=== PATIENT | female | born 1965 | race African-American/Black ===

== ENCOUNTER 2018-10-19 16:28 | Emergency (ER) | payer OTHER ==
--- NOTE | 2018-10-19 16:50 | ED ---
General Adult HPI - General Chief complaint: Recheck/Abnormal Lab/Rx Stated complaint: slip & fall-[facility] Time Seen by Provider: 10/19/18 16:39 Source: patient, RN notes reviewed Mode of arrival: ambulatory Limitations: no limitations - History of Present Illness Initial comments: 53-year-old female presents to the emergency department for a chief complaint of slip and fall occurring about one week ago. Patient states she did hit her head but had a negative CAT scan done at a different [facility] facility. Patient states she also had an x-ray of her thoracic spine and left humerus done at this facility earlier this week. Patient is now complaining of bilateral lower flank pain. She is also complaining of abdominal pain. She states this pain is generalized. Patient states she has been nauseous and has had intermittent diarrhea for the past week. She denies vomiting. She denies any difficulty urinating. She denies any dysuria. She denies any weakness in the legs. Patient has no other complaints at this time including shortness of breath, chest pain, headache, or visual changes. - Related Data Home Medications Medication Instructions Recorded Confirmed Acetaminophen Tab [Tylenol] 1,000 mg PO Q8HR PRN 10/13/18 10/19/18 Naproxen Sodium [Aleve] 220 mg PO DAILY 10/13/18 10/19/18 Allergies Allergy/AdvReac Type Severity Reaction Status Date / Time codeine Allergy Itching Verified 10/19/18 17:08 ibuprofen [From Motrin] AdvReac STOMACH Verified 10/19/18 17:08 PAIN Review of Systems ROS Statement: Those systems with pertinent positive or pertinent negative responses have been documented in the HPI. ROS Other: All systems not noted in ROS Statement are negative. Past Medical History Past Medical History: Deep Vein Thrombosis (DVT), Pulmonary Embolus (PE) History of Any Multi-Drug Resistant Organisms: None Reported Past Surgical History: Section Additional Past Surgical History / Comment(s): gallstone removed Past Psychological History: No Psychological Hx Reported Smoking Status: Current every day smoker Past Alcohol Use History: Occasional Past Drug Use History: None Reported General Exam Limitations: no limitations General appearance: alert, in no apparent distress Head exam: Present: atraumatic, normocephalic, normal inspection Eye exam: Present: normal appearance, PERRL, EOMI. Absent: scleral icterus, conjunctival injection, periorbital swelling ENT exam: Present: normal exam, mucous membranes moist Neck exam: Present: normal inspection, full ROM. Absent: tenderness, meningismus Respiratory exam: Present: normal lung sounds bilaterally. Absent: respiratory distress, wheezes, rales, rhonchi, stridor Cardiovascular Exam: Present: regular rate, normal rhythm, normal heart sounds. Absent: systolic murmur, diastolic murmur, rubs, gallop, clicks GI/Abdominal exam: Present: soft, normal bowel sounds. Absent: distended, tenderness (Generalized tenderness in the abdomen), guarding, rebound, rigid Rectal exam: Present: normal inspection, normal rectal tone Back exam: Present: tenderness ( tenderness throughout the lower bilateral flanks, no ecchymosis.). Absent: CVA tenderness (R), CVA tenderness (L), vertebral tenderness (no tendernesss of the lumbar spine) Neurological exam: Present: alert, oriented X3, CN II-XII intact Psychiatric exam: Present: normal affect, normal mood Course Vital Signs 10/19/18 10/19/18 16:34 20:09 Temperature 98.2 F 98.3 F Pulse Rate 88 89 Respiratory 16 13 Rate Blood Pressure 179/99 173/113 O2 Sat by Pulse 99 98 Oximetry - Reevaluation(s) Reevaluation #1: 10/19/18 20:07 Lab just arrived at bedside to draw blood. Medical Decision Making - Medical Decision Making 53-year-old female since to the emergency department for a chief complaint of pain all over. Patient states she had a slip and fall week ago and has been seen twice in the emergency department previously. Patient is now complaining of bilateral flank pain and abdominal pain. She denies any chest pain or shortness of breath. She denies any upper back pain. On exam patient has generalized tenderness throughout the abdomen and back. Rectal exam was done as patient is having diarrhea, rectal tone. Patient was given Toradol here in the emergency department. She was offered additional pain medication but states she is driving home so refuses this. CT abdomen and pelvis with contrast shows no acute process. Urine does not show any evidence of infection. I did recommend lab work for patient. Multiple tendons are made and lab failed on the first attempt so patient refused. I did tell patient that this lab work would be used to evaluate pancreatitis, high white blood cell count which could indicate infection, or any other concerns. Patient still refuses and states she is aware of the risks. I also offered patient an ultrasound of the gallbladder which she states she has had a cholecystectomy in the past. Patient was again offered additional pain medication but states she is still driving home. Patient will follow up outpatient with her primary care as well as a GI specialists. Discussed with Dr. Giraldo. - Lab Data Lab Results 10/19/18 Range/Units 17:34 Urine Color Yellow Urine Appearance Clear (Clear) Urine pH 5.5 (5.0-8.0) Ur Specific [place] 1.020 (1.001-1.035) Urine Protein Trace H (Negative) Urine Glucose (UA) Negative (Negative) Urine Ketones 1+ H (Negative) Urine Blood Negative (Negative) Urine Nitrite Negative (Negative) Urine Bilirubin Negative (Negative) Urine Urobilinogen <2.0 (<2.0) mg/dL Ur Leukocyte Esterase Negative (Negative) Disposition Clinical Impression: Flank pain, Abdominal pain Disposition: HOME SELF-CARE Condition: Good Instructions: Abdominal Pain (ED) Additional Instructions: Please take Motrin and Tylenol for pain. Please follow up with GI and primary in 1-2 days. Please return to the emergency department if you have any worsening symptoms. Is patient prescribed a controlled substance at d/c from ED?: No Referrals: Gonsalo Vieira MD [REFERRING] - 1-2 days Tawanna Pringle MD [STAFF PHYSICIAN] - 1-2 days Time of Disposition: 20:19
[2018-10-19] MEDS ORDERED: SODIUM CHLORIDE 0.9% 1,000 ML IV STA (17:04)
[2018-10-19] MEDS ORDERED: KETOROLAC 30 MG/ML 1 ML VIAL IVP STA (17:07)
[2018-10-19] MEDS ORDERED: ONDANSETRON 4 MG/2 ML VIAL IVP STA (17:07)
[2018-10-19 18:15] LABS: Appearance,Urine Clear (Clear); Bilirubin,Urine Negative (Negative); Blood,Urine Negative (Negative); Color,Urine Yellow; Glucose,Urine (UA) Negative (Negative); Ketones,Urine 1+ (Negative); Leukocyte Esterase,Urine Negative (Negative); Nitrite,Urine Negative (Negative); PH, Urine 5.5 (5.0-8.0); Protein,Urine Trace (Negative); Urobilinogen,Urine <2.0 mg/dL (<2.0)
--- NOTE | 2018-10-19 19:24 | CT ---
EXAMINATION TYPE: CT abdomen pelvis w con DATE OF EXAM: 10/19/2018 COMPARISON: None. HISTORY: Abdominal pain after fall injury x1 week ago CT DLP: 884 mGycm Automated exposure control for dose reduction was used. TECHNIQUE: Helical acquisition of images was performed from the lung bases through the pelvis. CONTRAST: Performed without Oral Contrast and with IV Contrast, patient injected with 100 mL of Isovue 300. FINDINGS: LUNG BASES: No significant abnormality is appreciated. LIVER/GB: No significant abnormality is appreciated. PANCREAS: No significant abnormality is seen. SPLEEN: No significant abnormality is seen. ADRENALS: No significant abnormality is seen. KIDNEYS: No significant abnormality is seen. FREE AIR: No free air is visualized. RETROPERITONEAL ADENOPATHY: None visualized REPRODUCTIVE ORGANS: No significant abnormality is seen URINARY BLADDER: No significant abnormality is seen. PELVIC ADENOPATHY: None visualized. OSSEOUS STRUCTURES: No significant abnormality is seen. BOWEL: No significant abnormality is seen. OTHER: Negative. IMPRESSION: NO ACUTE PROCESS.
[2018-10-19] MEDS ORDERED: ACETAMINOPHEN TAB 500 MG TAB PO STA (20:07)
[2018-10-19 20:14] VITALS: TEMP 98.3
[2018-10-19] MEDS ORDERED: LABETALOL 5 MG/ML VIAL MDV IVP STA (20:20)
[2018-10-19 20:44] VITALS: BP 178/93; PULSE 71; RESP 18
== END 2018-10-19 20:49 | disposition home or self-care (01) ==
LOC: EC 16:28
DX: R10.84 Generalized abdominal pain (principal); R11.0 Nausea; R19.7 Diarrhea, unspecified; F17.200 Nicotine dependence, unspecified, uncomplicated; Z79.1 Long term (current) use of non-steroidal anti-inflammatories (NSAID); Z88.5 Allergy status to narcotic agent; Z88.6 Allergy status to analgesic agent; Z53.29 Procedure and treatment not carried out because of patient's decision for other reasons
CPT/HCPCS: 93005; 81003; 74177; 99284; 96374; 96375; 96361 ×3; J2405; J1885; Q9967

== ENCOUNTER 2022-07-22 08:41 | Emergency (ER) | payer MEDICARE, OTHER ==
[2022-07-22 08:53] VITALS: RESP 20; TEMP 97.6
[2022-07-22] MEDS ORDERED: KETOROLAC 15 MG/ML 1 ML VIAL IVP STA (08:59)
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
[2022-07-22 20:15] VITALS: BP 161/101; PULSE 72
== END 2022-07-22 09:28 | disposition left against medical advice (07) ==
LOC: EC 08:41
DX: G89.29 Other chronic pain (principal); Z76.5 Malingerer [conscious simulation]; Z88.5 Allergy status to narcotic agent; Z88.6 Allergy status to analgesic agent
CPT/HCPCS: 93005; 99283; 96374; J1885